=== PATIENT | female | born 1960 | race Caucasian/White ===

== ENCOUNTER 2021-10-07 16:29 | Emergency (ER) | payer OTHER ==
[~2021-10-07] VITALS: Ht 160 cm; Wt 122.5 kg
[2021-10-07] MEDS ORDERED: ZINC SULFATE 220mg CAP or TAB PO ONE (17:45)
[2021-10-07] MEDS ORDERED: AZITHROMYCIN 500MG/ 250ML 250 ML IV ONE (17:45)
[2021-10-07] MEDS ORDERED: cefTRIAXone 1GM/50ML D5W 50 ML IV ONE (17:45)
[2021-10-07 19:00] VITALS: BP 123/63
[2021-10-07 19:11] LABS: Hematocrit 39.2 % (36.0-46.0); Mean Corpuscular Hemoglobin 29.1 pg (28.0-32.0); Mean Corpuscular Hgb Conc. 33.2 g/dL (32.0-36.0); Mean Corpuscular Volume 87.6 fL (80.0-100.0); Red Blood Cells 4.48 10^6/uL (4.0-5.20); Red Cell Distribution Width 14.6 % (11.8-14.3); White Blood Cell 5.5 10^3/uL (4.4-10.8)
[2021-10-07 19:19] LABS: Basophils % (manual) 0 (0.0-2.0); Blast Cells 0; Eosinophils % (manual) 0 (0-7); Metamyelocytes % 0; Myelocytes % 0; Promyelocytes % 0; Reactive Lymphocytes 0
[2021-10-07 19:32] LABS: Urine Bacteria FEW /hpf (None Seen); Urine Blood Negative /uL (Negative); Urine Mucus FEW (None Seen); Urine Specific Gravity 1.024 (1.001-1.035); Urine WBC 24 /hpf (0 - 5)
[2021-10-07 19:41] LABS: Albumin 2.5 g/dL (3.4-5.0); Calcium 7.1 mg/dL (8.5-10.1); Potassium 3.6 mmol/L (3.5-5.1)
[2021-10-07 19:49] LABS: BUN/Creatinine Ratio 12.1; Bilirubin, Total 0.4 mg/dL (0.2-1.0); Total Protein 5.2 g/dL (6.4-8.2)
[2021-10-07 20:34] LABS: Band Neutrophils % (manual) 4; Lymphocytes % (manual) 22 (10.0-50.0); Monocytes % (manual) 19 (0-12)
== END 2021-10-07 20:05 | disposition left against medical advice (07) ==
LOC: ER 16:29
DX: U07.1 COVID-19 (principal); J12.82 Pneumonia due to coronavirus disease 2019; I10 Essential (primary) hypertension
CPT/HCPCS: 36415; 36600; 71045; 80053; 81001; 82728; 82805; 83605; 83880; 84484; 85007; 85027; 85379; 87040; 87426; 96365; 99291; J0456; J0696; J7030